=== PATIENT | female | born 1950 | race Caucasian/White ===

== ENCOUNTER 2018-10-03 08:13 | Emergency (ER) | payer MEDICARE, OTHER ==
[~2018-10-03] VITALS: Ht 162.6 cm; Wt 81.8 kg
[2018-10-03 08:18] VITALS: BP 165/83; Ht 162.6 cm; Wt 81.8 kg
[2018-10-03] MEDS ORDERED: ZOCOR20 MG PO (08:20)
[2018-10-03] MEDS ORDERED: COZAAR50 MG PO (08:20)
[2018-10-03] MEDS ORDERED: TOZAL SOFTGEL1 EACH PO (08:20)
[2018-10-03] MEDS ORDERED: HYDROCHLOROTH12.5 M1 PO (08:20)
[2018-10-03] MEDS ORDERED: VITAMIN D5000 UNIT PO (08:21)
[2018-10-03] MEDS ORDERED: OMEGA-3100 MG PO (08:21)
== END 2018-10-03 09:21 | disposition home or self-care (01) ==
LOC: D.ER 08:13
DX: S92.501A Displaced unspecified fracture of right lesser toe(s), initial encounter for closed fracture (principal); W22.8XXA Striking against or struck by other objects, initial encounter; Y93.89 Activity, other specified; Y92.019 Unspecified place in single-family (private) house as the place of occurrence of the external cause; I10 Essential (primary) hypertension

== ENCOUNTER → 2019-10-16 13:06 | Outpatient (CLI) | payer MEDICARE, OTHER ==
[2018-10-03 08:18] VITALS: BMI 30.9
[~2019-10-16 13:06] MED LIST: COZAAR50 MG PO; HYDROCHLOROTH12.5 M1 PO; OMEGA-3100 MG PO; TOZAL SOFTGEL1 EACH PO; VITAMIN D5000 UNIT PO; ZOCOR20 MG PO
== END | disposition home or self-care (01) ==
LOC: D.CT 13:06
PROVIDERS: ATTEND Family Medicine
DX: I88.9 Nonspecific lymphadenitis, unspecified (principal)